=== PATIENT | male | born 1945 | race Caucasian/White ===

== ENCOUNTER 2017-04-03 08:54 | Day surgery (SDC) | payer OTHER ==
[~2017-04-03 08:54] MED LIST: Acetaminophen TAB* 325 MG PO PRN; Buffered Lidocaine 1% SYR 3ML* 3 ML/SYR SYRINGE INTRADERM ONE
[2017-04-03] MEDS ORDERED: fentaNYL* 50 MCG/ML 2 ML VIAL (100 MCG VIAL) ONE (09:40)
[2017-04-03] MEDS ORDERED: Midazolam* 1 MG/ML 5 ML VIAL (5 MG) ONE (09:40)
[2017-04-03 10:38] VITALS: BP 116/64
[2017-04-03] MEDS ORDERED: Tropicamide 1% OPTH.SOL* BTL ONE (11:24)
[2017-04-03] MEDS ORDERED: Lidocaine 1% MPF* 2 ML VIAL ONE (11:24)
[2017-04-03] MEDS ORDERED: Cyclopentolate 1% OPTH.SOL* 2 ML BTL ONE (11:24)
[2017-04-03] MEDS ORDERED: Tetracaine 0.5% OPTH.SOL 4 ML* 1 DROP BTL ONE (11:24)
[2017-04-03] MEDS ORDERED: Neomycin/Polymy/Dex OPHTH.OIN* 3.5 GM ONE (11:24)
[2017-04-03] MEDS ORDERED: Flurbiprofen 0.03% OPTH.SOL* 2.5 ML BTL ONE (11:24)
[2017-04-03] MEDS ORDERED: Phenylephrine 2.5% OPTH.SOL* 2 ML BTL ONE (11:24)
--- NOTE | 2017-04-03 12:22 | OP ---
DATE OF OPERATION/DATE OF DICTATION: 04/03/2017. DATE OF : 1945. SURGEON: Dr. Stepan Salazar. MOTOR VEHICLE FIELD REPRESENTATIVE: None. ANESTHESIA: Topical with intravenous sedation. PRE-OP DIAGNOSIS: Cataract, right eye. POST-OP DIAGNOSIS: Cataract, right eye. OPERATIVE PROCEDURE: Phacoemulsification and cataract extraction with posterior chamber intraocular lens implant, right eye. COMPLICATIONS: None. BLOOD LOSS: None. OPERATIVE FINDINGS: The patient was brought to the operating room and received a small amount of in travenous sedation. A drop of Tetracaine was placed in his right eye. He was prepped and draped in the usual sterile fashion for ophthalmic surgery and attention was directed to the right eye where a speculum was placed. A paracentesis was created at the 11 o'clock position and 0.1 cc of 1 percen t preservative-free Lidocaine was injected into the anterior chamber followed by DisCoVisc. The eye was digitally stabilized while a 2.75 mm keratome was used to create a triplanar clear corneal inci bud at the 9 o'clock position. A continuous curvilinear capsulorrhexis was created with a cystotom e and Utrata forceps. BSS on a cannula was used to hydrodissect the lens from the capsule. Phacoem ulsification was performed in a [id number]-[id number] technique to create four fragments which were rem diogo. Residual cortical material was removed with irrigation and aspiration. DisCoVisc was used to inflate the capsular bag and an AUOOTO 11.5 diopter lens was folded and inserted into the capsular b ag. DisCoVisc was removed using irrigation and aspiration. BSS on a cannula was used to hydrate th e corneal stroma and seal the wound. At the end of the case the pupil was round and the lens was ce ntered. The eye was of normal pressure and the wound was water tight. The speculum was removed and topical Maxitrol ointment was placed on the surface of the eye. The eye was closed, patched and jesika elded and the patient was sent to the recovery room in stable condition with post operative instruct ions and follow-up appointment given. [id number] #: [id number]
== END 2017-04-03 10:31 | disposition home or self-care (01) ==
LOC: OREAST 08:54
PROVIDERS: ATTEND Ophthalmology
DX: H25.11 Age-related nuclear cataract, right eye (principal); I10 Essential (primary) hypertension; Z87.891 Personal history of nicotine dependence; E78.5 Hyperlipidemia, unspecified
CPT/HCPCS: A9270-GY; J2250; J3010; V2632